=== PATIENT | male | born 1960 | race Caucasian/White ===

== ENCOUNTER 2017-07-27 22:09 | Inpatient (IN) | payer OTHER ==
[~2017-07-27] VITALS: Ht 180.3 cm; Wt 84.5 kg
[~2017-07-27 22:09] MED LIST: BENTYL20 MG PO; CELEXA10 M1 PO; NAPROSYN500 MG PO; OXYCODONE HCL15 MG PO; PERCOCET 10-321 EACH; VALIUM5 MG PO
[2017-07-27 22:57] LABS: BASOPHIL (%) 0.7 % (0-1); EOSINOPHIL (%) 3.4 % (0-5); EOSINOPHIL COUNT 0.2 K/uL (0-0.3); HEMATOCRIT 40.9 % (38.0-50.0); HEMOGLOBIN 13.9 G/DL (12.5-16.6); IMMATURE GRANULOCYTE (%) 0.2 % (0.0-0.7); LYMPHOCYTE (%) 39.9 % (15-42); LYMPHOCYTE COUNT 2.2 K/uL (1.0-2.8); MCH 31.5 PG (29.0-34.0); MCV 92.7 FL (86-99); MONOCYTE (%) 6.4 % (3-12); MONOCYTE COUNT 0.4 K/uL (0-0.8); NEUTROPHIL (%) 49.4 % (45-76); NEUTROPHIL COUNT 2.8 K/uL (1.8-6.4); PLATELET COUNT 127 K/uL (156-360); RBC DIS.WIDTH-CV 13.2 % (11.8-14.6); RBC DIS.WIDTH-SD 45.3 % (39-53); RED BLOOD COUNT 4.41 M/uL (4.00-5.50); WHITE BLOOD COUNT 5.6 K/uL (4.1-10.2)
[2017-07-27 23:11] LABS: ALBUMIN 4.2 g/dL (3.2-4.8); CHLORIDE 106 mEq/L (99-109); POTASSIUM 3.8 mEq/L (3.7-5.4)
[2017-07-27 23:12] LABS: SODIUM 140 mEq/L (136-147)
[2017-07-27 23:14] LABS: GLUCOSE 160 mg/dL (70-99); TOTAL PROTEIN 6.9 g/dL (6.4-8.3)
[2017-07-27 23:16] LABS: TOTAL BILIRUBIN 0.3 mg/dL (0.0-1.0)
[2017-07-27 23:17] LABS: ALKALINE PHOSPHATASE 110 IU/L (3-129); CREATININE 0.9 mg/dL (0.6-1.3); GFR ESTIMATE (CALCULATED) > 59 mL/min/ (58.99-99999)
[2017-07-27 23:19] LABS: AST (GOT) 17 IU/L (2-34); UREA NITROGEN (BUN) 12 mg/dL (9-23)
[2017-07-27 23:20] LABS: ALT (GPT) 20 IU/L (3-49)
[2017-07-27 23:23] LABS: TROP-I INTERPRETATION NEGATIVE; TROPONIN-I < 0.01 ng/mL (0.0-0.30)
[2017-07-27 23:27] LABS: APPEARANCE SL.HAZY ((CLEAR)); BILIRUBIN NEGATIVE; BLOOD NEGATIVE; COLOR YELLOW ((YELLOW)); GLUCOSE (STRIP) NEGATIVE; KETONES NEGATIVE; LEUKOCYTES NEGATIVE; NITRITE NEGATIVE; PROTEIN (STRIP) NEGATIVE; SPECIFIC GRAVITY 1.018 (1.000-1.030)
[2017-07-27 23:31] LABS: BACTERIA NONE SEEN /HPF; EPITHELIAL CELLS NONE SEEN /HPF; MUCUS TRACE /LPF; RED BLOOD CELLS 0-5 /HPF (0-5); UCUL ADDED? NO; WHITE BLOOD CELLS 0-5 /HPF (0-5)
[2017-07-27 23:45] LABS: HDL CHOLESTEROL 25 MG/DL (Desirable>=40); LDL CHOLESTEROL 74 mg/dL (Desirable<100); NON-HDL CHOLESTEROL 131 mg/dL (Desirable<160); TOTAL CHOLESTEROL 156 mg/dL (Desirable<200); TRIGLYCERIDES 285 MG/DL (Normal: <150)
[2017-07-28 04:56] VITALS: BP 159/75
[2017-07-28] MEDS ORDERED: METOPROLOL SUCC25 MG PO (05:43)
[2017-07-28 11:34] VITALS: BP 152/73
[2017-07-28] MEDS ORDERED: ONE DAILY1 EAC3 PO (11:52)
[2017-07-28 15:36] VITALS: BP 159/74
[2017-07-28 19:48] VITALS: BP 138/66
[2017-07-29 00:09] VITALS: BP 144/70
[2017-07-29 08:09] VITALS: BP 136/66
[2017-07-29] MEDS ORDERED: ASPIR-LOW81 MG PO (10:48)
[2017-07-29] MEDS ORDERED: ATORVASTATIN CA40 MG PO (10:48)
[2017-07-30 08:38] LABS: HEMOGLOBIN A1c (GLYCOHEMOGLOB) 7.4 % (Below 5.7)
== END 2017-07-29 11:46 | disposition home or self-care (01) | DRG 69 ==
LOC: EME 22:09 → EDOF 07-28 03:54 → ENRESERV 07-28 03:58 → 4SOUTH 07-28 04:49 → ENPENDDIS 07-29 11:02 → 4SOUTH 07-29 11:46
PROVIDERS: Emergency Medicine; Hospitalist
DX: G45.9 Transient cerebral ischemic attack, unspecified (principal); I69.392 Facial weakness following cerebral infarction; R47.1 Dysarthria and anarthria; R13.10 Dysphagia, unspecified; H53.8 Other visual disturbances; R06.02 Shortness of breath; I10 Essential (primary) hypertension; I25.10 Atherosclerotic heart disease of native coronary artery without angina pectoris; I44.0 Atrioventricular block, first degree; E78.5 Hyperlipidemia, unspecified; G89.29 Other chronic pain; I73.9 Peripheral vascular disease, unspecified; I25.2 Old myocardial infarction; R73.03 Prediabetes; F17.210 Nicotine dependence, cigarettes, uncomplicated
CPT/HCPCS: 70496; 70498; 70551; 71046; 80053; 80061; 81003; 82948; 83036; 84484; 85025; 92610 GN; 93005; 93306; 99281; 99284; G8996 GN CI; G8997 GN CI; G8998 GN CI; J1644; J1815; J7040